=== PATIENT | female | born 1945 | race Two or more races ===

== ENCOUNTER 2021-05-03 09:31 | Day surgery (SDC) | payer OTHER ==
[~2021-05-03 09:31] MED LIST: B12 ACTIVE1000 MCG PO; COZAAR25 MG PO; SYNTHROID75 MCG PO; WARFARIN SODIUM2 MG PO
== END 2021-05-03 18:30 | disposition home or self-care (01) ==
LOC: CIR.AMB 09:31
PROVIDERS: ATTEND Urology
DX: N13.4 Hydroureter (principal)